=== PATIENT | female | born 1990 | race American Indian/Alaskan Native ===

== ENCOUNTER 2019-02-05 21:31 | Emergency (ER) | payer BC ==
--- NOTE | 2019-02-05 22:18 | Emergency Department Report ---
Chief Complaint: Abdominal Pain Stated Complaint: ABD PAIN Time Seen by Provider: 02/05/19 22:14 - HPI History of Present Illness: This is a 28 y.o. female that presents to the ER with lower abdominal pain. LMP 01/13/19, A1 Denies vaginal discharge, vaginal bleeding, fever, n/v/d, urinary frequency, urgency, dysuria, or hematuria. Patient reports diagnosis of cyst on ovary by Odette Austin. MSE screening note: Focused history and physical exam performed. Due to findings the following was ordered: labs and pelvic US ED Disposition for MSE Condition: Stable Instructions: Abdominal Pain (ED)
[2019-02-05 22:40] LABS: Bacteria,Urine 1+ /HPF (Negative); Bilirubin,Urine NEG (Negative); Blood,Urine NEG (Negative); Color,Urine Yellow (Yellow); Mucus,Urine 3+ /HPF; Protein,Urine <15 mg/dL mg/dL (Negative); Urobilinogen,Urine < 2.0 mg/dL (<2.0)
[2019-02-05 22:56] LABS: Basophils # (Auto) 0.1 K/mm3 (0.0-0.1); Basophils % (Auto) 0.6 % (0.0-1.8); Eosinophils # (Auto) 0.2 K/mm3 (0.0-0.4); Eosinophils % (Auto) 1.6 % (0.0-4.3); Hematocrit 35.6 % (30.3-42.9); Hemoglobin 11.8 gm/dl (10.1-14.3); Lymphocytes # (Auto) 3.8 K/mm3 (1.2-5.4); Lymphocytes % (Auto) 37.3 % (13.4-35.0); Mean Corpuscular HGB Conc 33 % (30-34); Mean Corpuscular Volume 77 fl (79-97); Monocytes # (Auto) 0.6 K/mm3 (0.0-0.8); Platelet Count 332 K/mm3 (140-440); Red Blood Count 4.66 M/mm3 (3.65-5.03); Red Cell Distribution Width 16.4 % (13.2-15.2)
[2019-02-05 23:21] LABS: Alanine Aminotransferase 8 units/L (7-56); BUN/Creatinine Ratio 24; Blood Urea Nitrogen 17 mg/dL (7-17); Calcium 9.4 mg/dL (8.4-10.2); Hemolysis Index 1
--- NOTE | 2019-02-06 00:23 | Ultrasound Report ---
PROCEDURE: US PELVIC COMPLETE TECHNIQUE: Real-time transabdominal sonography in multiple planes of the pelvis was performed. The p elvic structures were not optimally visualized. Transvaginal sonography was then performed to better evaluate the structures and/or abnormalities described below with image documentation. Grayscale, col or flow Doppler imaging, and velocity spectral waveform analysis of the ovaries was employed (duplex imaging). HISTORY: pelvic pain, ? hx of cyst on ovary COMPARISONS: None . FINDINGS: UTERUS Size: 9.3 x 4.6 x 4.9 cm. Endometrial thickness: 12.3 mm. There is minimal fluid in the endometrial cavity. Orientation: anteverted. Cervix: Normal. Fibroids/masses: None. RIGHT Ovary: 4.4 x 2.7 x 3.9 cm. Appearance: There is a 12 mm cystic follicle. There is a 2 cm complex cyst which could be hemorrhagic .. Doppler images: Normal spectral waveforms and color flow images of the arterial inflow and venous out flow.. LEFT Ovary: 3 x 2.1 x 2.5 cm. Appearance: Normal. Doppler images: Normal spectral waveforms and color flow images of the arterial inflow and venous out flow.. Pelvic fluid: Minimal fluid.. IMPRESSION: There is minimal fluid in the endometrial cavity. There is no myometrial mass. There is a 12 mm right ovarian cystic follicle. There is a 2 cm right ovarian complex cyst which coul d be hemorrhagic. There is no ovarian torsion. There is minimal free pelvic fluid. This document is electronically signed by Zachary Null MD., Feb 06 2019 12:21:29 AM ET
[2019-02-06] MEDS ORDERED: ULTRAM PO ONE (01:24)
--- NOTE | 2019-02-06 01:24 | Emergency Department Report ---
ED Female HPI - General Chief complaint: Abdominal Pain Stated complaint: ABD PAIN Time Seen by Provider: 02/05/19 22:14 Source: patient Mode of arrival: Ambulatory Limitations: No Limitations - History of Present Illness Initial comments: This is a 28 y.o. female that presents to the ER with lower abdominal pain. LMP 01/13/19, A1 Denies vaginal discharge, vaginal bleeding, fever, n/v/d, urinary frequency, urgency, dysuria, or hematuria. Patient reports diagnosis of cyst on ovary by Odette Mcfarlane MD Complaint: pelvic pain Onset/Timin -: week(s) Radiation: suprapubic Severity: moderate Severity scale (0 -10): 4 Quality: aching Consistency: constant Improves with: none Worsens with: movement Are you Now?: No Last Menstrual Period: 01/23/19 EDC: 10/30/19 Associated Symptoms: abdominal pain - Related Data Sexually active: Yes : 2 Para: 2 A: 0 Previous Rx's Medication Instructions Recorded Last Taken Type Acyclovir [Zovirax Cap] 400 mg PO TID #30 cap 07/25/14 Unknown Rx Naproxen [Naprosyn TAB] 500 mg PO BID #30 tablet 07/25/14 Unknown Rx Penicillin Vk [Veetids TAB] 500 mg PO BID #20 tablet 07/25/14 Unknown Rx Ibuprofen 800 mg PO TID PRN #30 tablet 02/06/19 Unknown Rx Ibuprofen [Motrin 800 MG tab] 800 mg PO ONCE #1 tablet 02/06/19 Unknown Rx Allergies Allergy/AdvReac Type Severity Reaction Status Date / Time No Known Allergies Allergy Unverified 07/25/14 10:06 ED Review of Systems ROS: Stated complaint: ABD PAIN Other details as noted in HPI Constitutional: denies: chills, fever Eyes: denies: eye pain, eye discharge, vision change ENT: denies: ear pain, throat pain Respiratory: denies: cough, shortness of breath, wheezing Cardiovascular: denies: chest pain, palpitations Endocrine: no symptoms reported Gastrointestinal: abdominal pain, diarrhea. denies: nausea, vomiting, constipation, hematemesis, melena, hematochezia Genitourinary: urgency, frequency. denies: dysuria, hematuria, discharge, dyspareunia Musculoskeletal: denies: back pain, joint swelling, arthralgia Skin: denies: rash, lesions Neurological: denies: headache, weakness, paresthesias Psychiatric: denies: anxiety, depression Hematological/Lymphatic: denies: easy bleeding, easy bruising ED Past Medical Hx - Past Medical History Previous Medical History?: No Additional medical history: x1 - Surgical History Past Surgical History?: Yes Additional Surgical History: x1 - Social History Smoking Status: Never Smoker Substance Use Type: Alcohol - Medications Home Medications: Home Medications Medication Instructions Recorded Confirmed Last Taken Type Acyclovir [Zovirax Cap] 400 mg PO TID #30 cap 07/25/14 Unknown Rx Naproxen [Naprosyn TAB] 500 mg PO BID #30 tablet 07/25/14 Unknown Rx Penicillin Vk [Veetids TAB] 500 mg PO BID #20 tablet 07/25/14 Unknown Rx Ibuprofen 800 mg PO TID PRN #30 tablet 02/06/19 Unknown Rx Ibuprofen [Motrin 800 MG tab] 800 mg PO ONCE #1 tablet 02/06/19 Unknown Rx ED Physical Exam - General Limitations: No Limitations General appearance: alert, in no apparent distress - Head Head exam: Present: atraumatic, normocephalic - Eye Eye exam: Present: normal appearance, PERRL, EOMI Pupils: Present: normal accommodation - ENT ENT exam: Present: mucous membranes moist - Neck Neck exam: Present: normal inspection, full ROM. Absent: tenderness, lymphadenopathy - Respiratory Respiratory exam: Present: normal lung sounds bilaterally. Absent: respiratory distress, wheezes, stridor, chest wall tenderness - Cardiovascular Cardiovascular Exam: Present: regular rate, normal rhythm, normal heart sounds. Absent: systolic murmur, diastolic murmur, rubs, gallop - GI/Abdominal GI/Abdominal exam: Present: soft, tenderness (superpubic tenderness to palpation), normal bowel sounds. Absent: distended, guarding, rebound, rigid, bruit, hernia - Rectal Rectal exam: Present: deferred - External exam: Present: other (exam deferred ) - Extremities Exam Extremities exam: Present: normal inspection, full ROM, normal capillary refill. Absent: tenderness - Back Exam Back exam: Present: normal inspection, full ROM. Absent: tenderness, CVA tenderness (R), CVA tenderness (L), muscle spasm, paraspinal tenderness, vertebral tenderness, rash noted - Neurological Exam Neurological exam: Present: alert, oriented X3, CN II-XII intact, normal gait, reflexes normal - Psychiatric Psychiatric exam: Present: normal affect, normal mood - Skin Skin exam: Present: warm, dry, intact, normal color. Absent: rash ED Medical Decision Making - Lab Data Result diagrams: 02/05/19 22:33 02/05/19 22:33 Labs 02/05/19 02/05/19 02/05/19 22:33 22:33 22:33 WBC 10.2 RBC 4.66 Hgb 11.8 Hct 35.6 MCV 77 L MCH 25 L MCHC 33 RDW 16.4 H Plt Count 332 Lymph % (Auto) 37.3 H Johnston % (Auto) 6.0 Eos % (Auto) 1.6 Baso % (Auto) 0.6 Lymph # 3.8 Johnston # 0.6 Eos # 0.2 Baso # 0.1 Seg Neutrophils % 54.5 Seg Neutrophils # 5.6 Sodium 140 Potassium 3.9 Chloride 102.9 Carbon Dioxide 25 Anion Gap 16 BUN 17 Creatinine 0.7 Estimated GFR > 60 BUN/Creatinine Ratio 24 Glucose 91 Calcium 9.4 Total Bilirubin 0.30 AST 18 ALT 8 Alkaline Phosphatase 52 Total Protein 7.3 Albumin 4.0 Albumin/Globulin Ratio 1.2 HCG, Qual Negative Urine Color Urine Turbidity Urine pH Ur Specific [place] Urine Protein Urine Glucose (UA) Urine Ketones Urine Blood Urine Nitrite Urine Bilirubin Urine Urobilinogen Ur Leukocyte Esterase Urine WBC (Auto) Urine RBC (Auto) U Epithel Cells (Auto) Urine Bacteria (Auto) Urine Mucus 02/05/19 Unknown WBC RBC Hgb Hct MCV MCH MCHC RDW Plt Count Lymph % (Auto) Johnston % (Auto) Eos % (Auto) Baso % (Auto) Lymph # Johnston # Eos # Baso # Seg Neutrophils % Seg Neutrophils # Sodium Potassium Chloride Carbon Dioxide Anion Gap BUN Creatinine Estimated GFR BUN/Creatinine Ratio Glucose Calcium Total Bilirubin AST ALT Alkaline Phosphatase Total Protein Albumin Albumin/Globulin Ratio HCG, Qual Urine Color Yellow Urine Turbidity Slightly-cloudy Urine pH 5.0 Ur Specific [place] 1.034 H Urine Protein <15 mg/dl Urine Glucose (UA) Neg Urine Ketones Neg Urine Blood Neg Urine Nitrite Neg Urine Bilirubin Neg Urine Urobilinogen < 2.0 Ur Leukocyte Esterase Neg Urine WBC (Auto) 1.0 Urine RBC (Auto) 1.0 U Epithel Cells (Auto) 28.0 H Urine Bacteria (Auto) 1+ Urine Mucus 3+ - Radiology Data Radiology results: report reviewed, image reviewed Findings [facility] [address] [place] [address] Ultrasound Report Signed Patient: ELENITA QUINN MR#: [id number] : 1990 Acct:[id number] Age/Sex: 28 / F ADM Date: 02/05/19 Loc: ED Attending Dr: Ordering Physician: ISAIAS KIM Date of Service: 02/05/19 Procedure(s): US transvaginal Accession Number(s): [id number] cc: ISAIAS KIM PROCEDURE: US TRANSVAGINAL TECHNIQUE: Real-time transabdominal sonography in multiple planes of the pelvis was performed. The pelvic structures were not optimally visualized. Transvaginal sonography was then performed to better evaluate the structures and/or abnormalities described below with image documentation. Grayscale, color flow Doppler imaging, and velocity spectral waveform analysis of the ovaries was employed (duplex imaging). HISTORY: pelvic pain, ? hx of cyst on ovary COMPARISONS: None . FINDINGS: UTERUS Size: 9.3 x 4.6 x 4.9 cm. Endometrial thickness: 12.3 mm. There is minimal fluid in the endometrial cavity. Orientation: anteverted. Cervix: Normal. Fibroids/masses: None. RIGHT Ovary: 4.4 x 2.7 x 3.9 cm. Appearance: There is a 12 mm cystic follicle. There is a 2 cm complex cyst which could be hemorrhagic.. Doppler images: Normal spectral waveforms and color flow images of the arterial inflow and venous outflow.. LEFT Ovary: 3 x 2.1 x 2.5 cm. Appearance: Normal. Doppler images: Normal spectral waveforms and color flow images of the arterial inflow and venous outflow.. Pelvic fluid: Minimal fluid.. IMPRESSION: There is minimal fluid in the endometrial cavity. There is no myometrial mass. There is a 12 mm right ovarian cystic follicle. There is a 2 cm right ovarian complex cyst which could be hemorrhagic. There is no ovarian torsion. There is minimal free pelvic fluid. This document is electronically signed by Zachary Martinez MD., Feb 06 2019 12:22:24 AM ET Transcribed By: CO Dictated By: ZACHARY MARTINEZ MD Electronically Authenticated By: ZACHARY MARTINEZ MD Signed Date/Time: 02/06/19 0024 DD/ 0005 TD/TT: 02/06/19 0006 - Medical Decision Making Ultrasound shows bilateral ovarian cyst urine noted in all bacteria plan Macrobid ibuprofen follow with [employer] for ovarian cyst return to ED should symptoms worsen at this time there is no nausea vomiting no fever chills patient tolerated by mouth intake without symptoms Critical care attestation.: If time is entered above; I have spent that time in minutes in the direct care of this critically ill patient, excluding procedure time. ED Disposition Clinical Impression: Ovarian cyst Qualifiers: Laterality: unspecified laterality Qualified Code(s): N83.209 - Unspecified ovarian cyst, unspecified side Abdominal pain Qualifiers: Abdominal location: unspecified location Qualified Code(s): R10.9 - Unspecified abdominal pain Disposition: - TO HOME OR SELFCARE Is pt being admited?: No Does the pt Need Aspirin: No Condition: Stable Instructions: Ovarian Cyst (ED), Urinary Tract Infection in Women (ED) Prescriptions: Ibuprofen 800 mg PO TID PRN #30 tablet PRN Reason: Pain , Severe (7-10) Ibuprofen [Motrin 800 MG tab] 800 mg PO ONCE #1 tablet Referrals: [facility] [Outside] - 3-5 Days Forms: Work/School Release Form(ED) Time of Disposition: 02:38
--- NOTE | 2019-02-06 01:34 | Emergency Department Report ---
ED N/V/D HPI - General Chief complaint: Abdominal Pain Stated complaint: ABD PAIN Time Seen by Provider: 02/05/19 22:14 Source: patient Mode of arrival: Ambulatory Limitations: No Limitations - History of Present Illness Initial comments: This is a 28 y.o. female that presents to the ER with lower abdominal pain. LMP 01/13/19, A1 Denies vaginal discharge, vaginal bleeding, fever, n/v/d, urinary frequency, urgency, dysuria, or hematuria. Patient reports diagnosis of cyst on ovary by Odette Mcfarlane MD complaint: nausea, vomiting, diarrhea, abdominal pain Onset/Timin -: days(s) Description of Vomiting: food contents Description of Diarrhea: water Associated Abdominal Pain: No Location: LLQ Radiation: none Severity: moderate Pain Scale: 4 Quality: cramping Consistency: intermittent Improves with: none Worsens with: none Associated Symptoms: nausea/vomiting - Related Data Previous Rx's Medication Instructions Recorded Last Taken Type Acyclovir [Zovirax Cap] 400 mg PO TID #30 cap 07/25/14 Unknown Rx Naproxen [Naprosyn TAB] 500 mg PO BID #30 tablet 07/25/14 Unknown Rx Penicillin Vk [Veetids TAB] 500 mg PO BID #20 tablet 07/25/14 Unknown Rx Allergies Allergy/AdvReac Type Severity Reaction Status Date / Time No Known Allergies Allergy Unverified 07/25/14 10:06 ED Review of Systems ROS: Stated complaint: ABD PAIN Other details as noted in HPI Constitutional: denies: chills, fever Eyes: denies: eye pain, eye discharge, vision change ENT: denies: ear pain, throat pain Respiratory: denies: cough, shortness of breath, wheezing Cardiovascular: denies: chest pain, palpitations Endocrine: no symptoms reported Gastrointestinal: abdominal pain, nausea, vomiting, diarrhea. denies: constipation, hematemesis, melena, hematochezia Genitourinary: frequency. denies: urgency, dysuria, hematuria, discharge, dyspareunia Musculoskeletal: denies: back pain, joint swelling, arthralgia Skin: denies: rash, lesions Neurological: denies: headache, weakness, paresthesias Psychiatric: denies: anxiety, depression Hematological/Lymphatic: denies: easy bleeding, easy bruising ED Past Medical Hx - Past Medical History Previous Medical History?: No Additional medical history: x1 - Surgical History Past Surgical History?: Yes Additional Surgical History: x1 - Social History Smoking Status: Never Smoker Substance Use Type: Alcohol - Medications Home Medications: Home Medications Medication Instructions Recorded Confirmed Last Taken Type Acyclovir [Zovirax Cap] 400 mg PO TID #30 cap 07/25/14 Unknown Rx Naproxen [Naprosyn TAB] 500 mg PO BID #30 tablet 07/25/14 Unknown Rx Penicillin Vk [Veetids TAB] 500 mg PO BID #20 tablet 07/25/14 Unknown Rx ED Physical Exam - General Limitations: No Limitations ED Medical Decision Making - Lab Data Result diagrams: 02/05/19 22:33 02/05/19 22:33 Critical care attestation.: If time is entered above; I have spent that time in minutes in the direct care of this critically ill patient, excluding procedure time. ED Disposition Condition: Stable Instructions: Abdominal Pain (ED) Referrals: JUAN DANIEL MOORE MD [Primary Care Provider] - 3-5 Days
[2019-02-06] MEDS ORDERED: IBUPROFEN PO ONE (02:36)
[2019-02-06 03:50] VITALS: BP 115/51
== END 2019-02-06 03:53 | disposition home or self-care (01) ==
LOC: ED 21:31
DX: N83.201 Unspecified ovarian cyst, right side (principal)
CPT/HCPCS: 36415; 76830; 76856; 80053; 81001; 84703; 85025; 99284